=== PATIENT | female | born 1985 | race Caucasian/White ===

== ENCOUNTER 2019-06-03 16:09 | Observation (INO) | payer OTHER, SELFPAY ==
[2019-06-03] VITALS (9 sets, daily range): BP systolic 73–115; BP diastolic 54–78; PULSE 61–190; RESP 14–24; TEMP 36.6–36.8; O2SAT 98–100; BMI 33.5
--- NOTE | ~2019-06-03 | CT_ITS ---
EXAMINATION: CT brain wo con EXAM DATE: 06/03/2019 17:25 INDICATION: Syncope. Atrial fibrillation. Cardioversion. TECHNIQUE: Spiral CT of the head was performed without contrast. Axial, coronal and sagittal images were reviewed. The dose-length product (DLP) for this examination was 605.33 mGy-cm. The exposure w as tailored according to patient size, and iterative reconstruction (ASIR) was used as additional dos e reduction technique. There is no prior study for comparison. FINDINGS: There is no acute intraparenchymal hemorrhage. No evidence of intraparenchymal brain mass lesion. No evidence of acute infarction. There is no mass effect or midline shift. The ventricles are normal in size. There are no extra-axial collections. There are no acute calvarial fractures. T he orbits are unremarkable. Soft tissue is unremarkable. The visualized sinuses and mastoid air chuy ls are well aerated. IMPRESSION: 1. No acute intracranial findings. Reviewed, dictated and finalized at location A.
--- NOTE | ~2019-06-03 | XR_ITS ---
EXAMINATION: XR knee LT 3V EXAM DATE: 06/03/2019 17:33 INDICATION: Initial encounter following injury, with pain of the left knee. Abrasion. TECHNIQUE: Three projections of the left knee. There is no prior study for comparison. FINDINGS: No evidence osteochondral defect or joint body in the left knee joint. There are no acute fractures or dislocations identified. There is no subcutaneous gas. The soft tissue is unremarkabl e. There are no radiopaque foreign bodies. No joint effusion. IMPRESSION: 1. Unremarkable XR knee LT 3V exam. Reviewed, dictated and finalized at location A.
--- NOTE | ~2019-06-03 | XR_ITS ---
EXAMINATION: XR chest 2V EXAM DATE: 06/03/2019 17:33 INDICATION: Fibrillation. Syncope. TECHNIQUE: Frontal AP and lateral chest x-ray was obtained. There is no prior study for comparison. FINDINGS: The lungs are clear. There are no pleural effusions. Cardiac silhouette is prominent but magnified on this AP technique. There is no pneumothorax suspected. The bones and soft tissues are unremarkable. IMPRESSION: No acute cardiopulmonary findings. Reviewed, dictated and finalized at location A.
--- NOTE | 2019-06-03 16:10 | ECG_ITS ---
Measurements Intervals [place] Rate: 166 P: PA: 0 QRS: -50 QRSD: 160 T: 0 QT: 286 QTc: 476 Interpretive Statements WIDE COMPLEX TACHYCARDIA, PROBABLY VENTRICULAR TACHYCARDIA BASELINE WANDER- V5-V6 ABNORMAL ECG Electronically Signed On 06-03-2019 16:39:43 CDT by Chapo Barrera D.O.
--- NOTE | 2019-06-03 16:17 | ED.ARRPALP ---
HPI - Arrhythmia/Palpitations General Chief Complaint: Arrhythmia/Palpitations <Lisandro Ballard MD - Last Filed: 06/09/19 06:19> Stated Complaint: syncopal episode <Lisandro Ballard MD - Last Filed: 06/09/19 06:19> Time Seen by Provider: 06/03/19 16:20 <Lisandro Ballard MD - Last Filed: 06/09/19 06:19> Source: patient and RN notes reviewed <Lisandro Ballard MD - Last Filed: 06/09/19 06:19> Mode of arrival: ambulatory <Lisandro Ballard MD - Last Filed: 06/09/19 06:19> Limitations: no limitations <Lisandro Ballard MD - Last Filed: 06/09/19 06:19> History of Present Illness HPI narrative: A 34 y/o female presents to the ED with constant palpitations beginning this afternoon. She states that she had a syncopal episode earlier this afternoon and after she developed palpitations. She reports that when she had her syncopal episode that she fell to the ground and hit her lt knee and the lt side of her head. She notes that she was recently dx with A-fib within the past 2 months and is currently on Flecainide and Metoprolol. She denies any CP. <Lisandro Ballard MD - Last Filed: 06/09/19 06:19> MD complaint: palpitations <Lisandro Ballard MD - Last Filed: 06/09/19 06:19> Onset (ago): hour(s) (this afternoon) <Lisandro Ballard MD - Last Filed: 06/09/19 06:19> Duration: constant <Lisandro Ballard MD - Last Filed: 06/09/19 06:19> Context: other (happened after a syncopal episode) <Lisandro Ballard MD - Last Filed: 06/09/19 06:19> Arrhythmia history: atrial fibrillation <Lisandro Ballard MD - Last Filed: 06/09/19 06:19> Associated symptoms: syncope and other (lt LUNDBERG and lt knee pain) <Lisandro Ballard MD - Last Filed: 06/09/19 06:19> Related Data Home Medications: Home Medications Medication Instructions Recorded Confirmed levothyroxine 125 mcg PO DAILY 06/03/19 06/03/19 metoprolol succinate 25 mg PO DAILY 06/03/19 06/03/19 <Lisandro Ballard MD - Last Filed: 06/09/19 06:19> Allergies/Adverse Reactions: Allergies Allergy/AdvReac Type Severity Reaction Status Date / Time aspirin AdvReac Nausea and Verified 06/03/19 17:58 Vomiting NSAIDS (Non-Steroidal AdvReac Nausea and Verified 06/03/19 17:58 Anti-Inflamma Vomiting <Lisandro Ballard MD - Last Filed: 06/09/19 06:19> Review of Systems Review of Systems: All systems reviewed & are unremarkable except as noted in HPI and below <Lisandro Ballard MD - Last Filed: 06/09/19 06:19> Cardiovascular: Cardiovascular: Denies chest pain and Reports palpitations <Lisandro Ballard MD - Last Filed: 06/09/19 06:19> Musculoskeletal: Musculoskeletal: Reports other (lt knee pain) <Lisandro Ballard MD - Last Filed: 06/09/19 06:19> Neurologic: Reports syncope and Reports headache(s) (lt) <Lisandro Ballard MD - Last Filed: 06/09/19 06:19> [facility]LY [facility] Past Medical History Medical History: Medical History (Updated 06/03/19 @ 17:46 by Jose Ramos MD) A-fib <Lisandro Ballard MD - Last Filed: 06/09/19 06:19> Surgical History Surgical History: Surgical History (Updated 06/03/19 @ 16:36 by Moustapha Mendez) Hx of laparoscopic gastric banding <Lisandro Ballard MD - Last Filed: 06/09/19 06:19> Social History Social History: Social History (Updated 06/03/19 @ 16:37 by Moustapha Mendez) Smoking status: Never smoker Alcohol intake: never Substance use: never Gender identity (if verbalized by the patient): Female Spiritual care concerns: No Agree to blood products: Yes <Lisandro Ballard MD - Last Filed: 06/09/19 06:19> Exam Const: General: alert <Lisandro Balladr MD - Last Filed: 06/09/19 06:19> Nutritional Appearance: obese <Lisandro Ballard MD - Last Filed: 06/09/19 06:19> Orientation/consciousness: patient oriented x3 <Lisandro Ballard MD - Last Filed: 06/09/19 06:19> Other: Mild distre
--- NOTE | 2019-06-03 16:24 | PC.NURSE ---
PT SYNCHRONIZED CARDIOVERTED @[address] LEBLANC
[2019-06-03] MEDS: SODIUM CHLORIDE 0.9% IV 1,000 ML 999 ML IV CONT (16:25)
--- NOTE | 2019-06-03 16:29 | ECG_ITS ---
Measurements Intervals [place] Rate: 77 P: 63 MO: 170 QRS: -34 QRSD: 113 T: -19 QT: 442 QTc: 503 Interpretive Statements SINUS RHYTHM LEFT AXIS DEVIATION INTRAVENTRICULAR CONDUCTION DELAY DELAYED PRECORDIAL R/S TRANSITION BORDERLINE T WAVE ABNORMALITY- ANT/INF LEADS BORDERLINE ECG Electronically Signed On 06-04-2019 8:58:49 CDT by Chapo Barrera D.O.
[2019-06-03 16:51] LABS: Basophils Percent Auto 0.2 % (0.2-1.2); Eosinophils Absolute Auto 0.2 K/mm3 (0-0.3); Eosinophils Percent Auto 1.2 % (0-4.4); Hematocrit 49.2 % (37.0-47.0); Hemoglobin 16.9 g/dL (12.0-15.0); Immature Granulocyte Absolute 0.03 K/mm3 (0.00-0.031); Immature Granulocyte Percent A 0.2 % (0-0.5); Lymphocytes Absolute Auto 5.16 K/mm3 (0.9-3.2); Mean Corpuscular HGB Conc 34.3 g/dl (32-36); Mean Corpuscular Hemoglobin 31.9 pg (26-34); Mean Corpuscular Volume 92.8 fl (80-100); Mean Platelet Volume 11.8 fl (7.4-10.4); Monocytes Absolute Auto 0.8 K/mm3 (0.1-0.6); Neutrophils Absolute Auto 7.1 K/mm3 (1.3-6.7); Neutrophils Percent Auto 53.4 % (45.5-73.1); Platelet Count Result 278 k/mm3 (150-375); White Blood Count 13.2 K/mm3 (4.5-10.0)
[2019-06-03] MEDS: AMIODARONE 150 MG/D5W 100 ML 150 MG/100 ML BAG 600 MG IV CONT (17:10)
[2019-06-03 17:23] LABS: INR 1.1; Prothrombin Time 13.8 Seconds (11.1-14.7)
[2019-06-03 17:24] LABS: Blood Urea Nitrogen 17 mg/dL (7-17); Calcium 8.8 mg/dL (8.4-10.2); Carbon Dioxide 21 mmol/L (22-30); Chloride 105 mmol/L (98-107); Estimated CRCL calculation 69 ml/min; Estimated Glomerular Filt Rate 57; Glucose 133 mg/dL (65-105); Partial Thromboplastin Time 23.7 SECONDS (22.3-36.8); Potassium 4.8 mmol/L (3.4-5.0); Sodium 136 mmol/L (137-145)
[2019-06-03 17:55] LABS: Troponin I < 0.012 ng/mL (0.000-0.034)
[2019-06-03] MEDS: MAGNESIUM SULF 1 GM/D5W 100 ML 1 GM/100 ML BAG IVPB (17:58)
[2019-06-03 18:06] LABS: Magnesium 2.2 mg/dL (1.6-2.3)
[2019-06-03 20:18] LABS: Magnesium 2.4 mg/dL (1.6-2.3)
[2019-06-03 20:30] LABS: Troponin I < 0.012 ng/mL (0.000-0.034)
[2019-06-03 23:40] LABS: Troponin I < 0.012 ng/mL (0.000-0.034)
[2019-06-04] VITALS (14 sets, daily range): BP systolic 93–109; BP diastolic 53–70; PULSE 44–77; RESP 16–20; TEMP 36.2–37; O2SAT 98–100
[2019-06-04 04:44] LABS: Basophils Percent Auto 0.2 % (0.2-1.2); Eosinophils Absolute Auto 0.1 K/mm3 (0-0.3); Eosinophils Percent Auto 1.1 % (0-4.4); Hematocrit 40.3 % (37.0-47.0); Hemoglobin 13.9 g/dL (12.0-15.0); Immature Granulocyte Absolute 0.02 K/mm3 (0.00-0.031); Immature Granulocyte Percent A 0.2 % (0-0.5); Lymphocytes Absolute Auto 2.51 K/mm3 (0.9-3.2); Lymphocytes Percent Auto 30.2 % (18.3-44.2); Mean Corpuscular HGB Conc 34.5 g/dl (32-36); Mean Corpuscular Hemoglobin 31.8 pg (26-34); Mean Corpuscular Volume 92.2 fl (80-100); Mean Platelet Volume 10.8 fl (7.4-10.4); Monocytes Absolute Auto 0.6 K/mm3 (0.1-0.6); Monocytes Percent Auto 7.5 % (2.6-8.5); Neutrophils Absolute Auto 5.1 K/mm3 (1.3-6.7); Neutrophils Percent Auto 60.8 % (45.5-73.1); Platelet Count Result 199 k/mm3 (150-375); Red Blood Count 4.37 M/mm3 (4.2-5.4); Red Cell Distribution Width 11.9 % (11.5-14.5); White Blood Count 8.3 K/mm3 (4.5-10.0)
[2019-06-04 05:02] LABS: Blood Urea Nitrogen 15 mg/dL (7-17); Calcium 8.3 mg/dL (8.4-10.2); Carbon Dioxide 22 mmol/L (22-30); Chloride 108 mmol/L (98-107); Estimated CRCL calculation 97 ml/min; Estimated Glomerular Filt Rate > 60; Glucose 94 mg/dL (65-105); Potassium 3.7 mmol/L (3.4-5.0); Sodium 137 mmol/L (137-145)
--- NOTE | 2019-06-04 06:00 | ECG_ITS ---
Measurements Intervals [place] Rate: 49 P: 60 MS: 183 QRS: -18 QRSD: 97 T: -39 QT: 484 QTc: 440 Interpretive Statements SINUS BRADYCARDIA LOW QRS VOLTAGE IN PRECORDIAL LEADS T WAVE ABNORMALITY IN ANT/INF LEADS- CONSIDER ISCHEMIA BASELINE WANDER- V3 ABNORMAL ECG Electronically Signed On 06-04-2019 11:00:03 CDT by Chapo Barrera D.O.
--- NOTE | 2019-06-04 06:00 | ECHO_ITS ---
Patient Info Name: Nighat Powell Age: 34 years : 1985 Gender: Female Ht: 65 in Wt: 202 lbs BSA: 2.09 m2 HR: 65 bpm BP: 97 / 54 mmHg Heart Rhythm: Sinus Rhythm Technical Quality: Good Exam Date: 06/04/2019 8:54 AM Exam Location: [facility] Patient Status: Inpatient Admit Date: 06/03/2019 Staff Ordering Physician: Jose Ramos MD Art Objects Salesperson: Tigre Tineo RDCS Attending Provider: Angelina Alberto DO Exam Type: CA echo dop color flow w con Study Info Indications I49.9 - Cardiac arrhythmia, unspecified Complete two-dimensional, color flow and Doppler transthoracic echocardiogram is performed with contrast to opacify the left ventrical and to improve the deliniation of the left ventrical endocarial boarders. Contrast/Agitated Saline Contrast/Ag. Saline: Definity Amount: 3.00 ml Administered By: Katia Casillas RN Existing IV Access: Yes History/Risk Factors Syncope; Vtach, Afib, palpitations, HoTN. Summary 1. Left ventricular systolic function is normal, estimated at 45-50%. 2. Definity contrast injected to enhance visualization. 3. Non dilated left and right atrium. 4. No valvular lesions identified. Left Ventricle Left ventricular chamber dimension is normal. Left ventricular systolic function is normal, estimated at 45-50%. The left ventricular diastolic function is normal. Definity contrast injected to enhance visualization. Right Ventricle Right ventricular chamber dimension is normal. Left Atria Left atrial chamber dimension is normal. Right Atria Right atrial chamber dimension is normal. Aortic Valve The aortic valve is normal. Pulmonic Valve The pulmonic valve is not well visualized. Mitral Valve The mitral valve has normal leaflets. Tricuspid Valve The tricuspid valve leaflets are normal. Pericardium/Pleural The pericardium appears normal. Aorta The aortic root size at the sinus of Valsalva is normal. Left Ventricular Outflow Tract Name Value Normal LVOT 2D LVOT Diameter 1.77 cm LVOT Doppler LVOT Peak Gradient 4 mmHg LVOT Mean Gradient 2 mmHg LVOT VTI 20.45 cm LVOT VTI/AV VTI Ratio 0.83 LVOT Stroke Volume 50.15 ml LVOT CO 3.18 l/min LVOT CI 1.53 L/min/m2 Mitral Valve Name Value Normal MV Doppler MV Decel [place] 402.20 cm/s2 MV PHT 0 s MV Area (PHT) 3.80 cm2 4.00-5.00 MV Diastolic Function MV E Peak Velocity 80.37 cm/s MV
[2019-06-04] MEDS: LEVOTHYROXINE SODIUM 125 MCG TABLET PO (06:40)
[2019-06-04] MEDS: METOPROLOL SUCCINATE EXT REL 25 MG TABCR PO (09:00)
--- NOTE | 2019-06-04 09:53 | PM.IMHP ---
H&P: HPI History of Present Illness Chief complaint: v tach/hemodynamically unstable/status post cardio Narrative: Nighat Powell is a 34 year old female admitted to our service yesterday evening from the emergency room after experiencing a syncopal episode outside [place] local [employer] [place] in the parking lot. The patient has a history of arrhythmias in the past with occasional to sometimes frequent PVCs causing palpitations about 4 years ago when she was . There evaluations did not show any other cardiac problems at that time and it was elected because of to not treat her with any medications at all. Following delivery those palpitations seem to settle down. 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 Some of the nurses at her dialysis center a would feel her pulse in indicate they thought she had atrial fibrillation. She bought an [employer] watch to confirm this and apparently confirmed the diagnosis. She then went to see a high school football coach out at [facility] in [facility] for consultation. She states she had an echocardiogram as well as a stress echocardiogram both of which were normal. She saw him back in follow-up in was placed on metoprolol and flecainide for treatment of this. The drug was started a couple of weeks ago last week the dosage was increased from 50 mg to 100 mg. After she rates the dosage she stated she started to feel sick episodes of severe lightheadedness and near syncope. Yesterday in the parking lot what walking out of [facility] she had a danyelle syncopal episode and went to the ground and awakened after losing consciousness her time being unconscious is unknown. She was taken by ambulance to [facility] where she was evaluated. She was found ECG to have monomorphic ventricular tachycardia. She was electrically cardioverted back to sinus rhythm. She was admitted to our service in IMU and is feeling well this morning and is totally asymptomatic. Review of Systems Constitutional: Constitutional: Reports no additional constitutional complaints Eyes: Eyes: Reports no additional eye complaints ENT: Reports system reviewed and no additional complaints, except as documented Cardiovascular: Cardiovascular: Reports as per HPI and Reports palpitations Respiratory: Respiratory: Reports no additional respiratory complaints Gastrointestinal: Gastrointestinal: Reports no additional gastrointestinal complaints Musculoskeletal: Musculoskeletal: Reports no additional musculoskeletal complaints Integumentary/Breasts: Skin/Breast: Reports system reviewed and no additional complaints, except as docu Neurologic: Reports as per HPI [facility] Past Medical History Medical History (Updated 06/03/19 @ 17:46 by Jose Ramos MD) A-fib Surgical History Surgical History (Updated 06/03/19 @ 16:36 by Moustapha Mendez) Hx of laparoscopic gastric banding Social History Social History (Updated 06/03/19 @ 16:37 by Moustapha Mendez) Smoking status: Never smoker Alcohol intake: never Substance use: never Gender identity (if verbalized by the patient): Female Spiritual care concerns: No Agree to blood products: Yes Meds Home Medications and Allergies Home Medications Medication Instructions Recorded Confirmed Type flecainide 100 mg PO DAILY 06/03/19 06/03/19 History levothyroxine 125 mcg PO DAILY 06/03/19 06/03/19 History metoprolol succinate 25 mg PO DAILY 06/03/19 06/03/19 History Allergies Allergy/AdvReac Type Severity Reaction Status Date / Time aspirin AdvReac Nausea and Verified 06/03/19 17:58 Vomiting NSAIDS (Non-Steroidal AdvReac Nausea and Verified 06/03/19 17:58 Anti-Inflamma Vomiting Vital Signs Vital Signs - 24 hr 06/03/19 16:15 06/03/19 16:30 06/03/19 17:00 Temperature 36.6 C Pulse Rate 190 H 79 72 Respir
[2019-06-04] MEDS: PERFLUTREN LIPID MICROSPHERES 1.5 ML VIAL DILUTED TO 10 ML TOTAL VOLUME IV PUSH (10:03)
[2019-06-05] VITALS (10 sets, daily range): BP systolic 100–103; BP diastolic 49–61; PULSE 43–62; RESP 20; TEMP 36.1–36.5; O2SAT 99–100
[2019-06-05] MEDS: LEVOTHYROXINE SODIUM 125 MCG TABLET PO (06:28)
[2019-06-05] MEDS: METOPROLOL SUCCINATE EXT REL 25 MG TABCR PO (09:44)
--- NOTE | 2019-06-05 09:52 | ECG_ITS ---
Measurements Intervals [place] Rate: 41 P: 52 [place]: 168 QRS: -14 QRSD: 101 T: -22 QT: 481 QTc: 399 Interpretive Statements SINUS BRADYCARDIA LOW QRS VOLTAGE IN PRECORDIAL LEADS T WAVE ABNORMALITY IN INFERIOR LEADS- CONSIDER ISCHEMIA ABNORMAL ECG Electronically Signed On 06-05-2019 12:34:52 CDT by Chapo Barrera D.O.
--- NOTE | 2019-06-05 11:18 | PM.DS ---
DS: Diagnosis Admitting Diagnosis Admitting Diagnosis: Ventricular tachycardia Syncope Discharge Diagnosis (1) Ventricular tachycardia: Code(s): I47.2 - Ventricular tachycardia Status: Acute Assessment and Plan: Presented to the emergency room on 06/03/2019 with palpitations and a syncopal episode that occurred earlier in the afternoon. She was found to have a wide complex tachycardia and was hypotensive. She underwent electrical cardioversion restoring her back to sinus rhythm. She was evaluated by Dr. Sloer on 06/04/2019 who felt that the monomorphic ventricular tachycardia with syncope was almost undoubtedly flecainide induced. Last dose of flecainide was the morning dose on 06/03/2019. No further arrhythmias on telemetry. Bradycardia noted as her Metoprolol succinate 25 mg was continued. She is asymptomatic with this bradycardia. Echocardiogram revealed LV systolic function with EF of 45-50%. Right and left atrium were normal in dimension. No valvular lesions identified. Registered Clinical Dietitian Dr. Jaspreet Briseno by telephone at 12:56 p.m. on 06/05/2019. Records from [facility] will be faxed to his office. DS: Summary Hospital Course Reason for hospitalization: Palpitations and syncopal episode Hospital Course: 34-year-old female with a recent diagnosis of atrial fibrillation on flecainide and Metoprolol succinate presented to the emergency room with constant palpitations and a syncopal episode that occurred earlier in the afternoon. She was found to be in a wide complex tachycardia with hypotension. She was cardioverted successfully restoring normal sinus rhythm. Flecainide was discontinued. Metoprolol succinate at 25 mg daily was continued. She was monitored for 2 consecutive nights on telemetry with no further arrhythmias. Bradycardia was noted but this has been asymptomatic. Her vital signs have been stable. She has been up moving around in her room with no difficulty. She denied any chest discomfort, shortness of breath, lightheadedness or palpitations. Her established timber faller, Dr. Jaspreet Briseno, was notified of her hospitalization. Records will be faxed to his office. She was discharged home in stable and pain-free condition. Status at Discharge Functional status at discharge: independent ambulation Overall status at discharge: patient is back to baseline Time Spent with Patient Time attestation: Total time spent providing and/or coordinating discharge services: 35 minutes Time spent: Greater than 30 minutes Specific discharge activities: Collecting records, discharge order and discharge summary. Exam Const: General: cooperative, comfortable and no acute distress Orientation/consciousness: patient oriented x3 HENMT: Mouth: Yes moist mucous membranes Eyes: Sclera: sclerae normal Pupils: Equal, round and reactive pupils present Neck: Neck: supple Resp: Effort & Inspection: normal respiratory effort and able to speak in complete sentences Auscultation: clear to auscultation bilaterally Cardio: Rate: bradycardic Rhythm: regular rhythm Heart sounds: no murmurs Peripheral pulses: Peripheral pulses 2+ throughout GI: Inspection: normal to inspection GI Palp: Yes Soft to palpation Auscultation: normal bowel sounds Skin: General skin exam: normal color Neuro: General: patient oriented x3 Cranial nerves: Yes Equal, round and reactive pupils present Cognition (Neuro): normal cognition Speech: normal speech Extrem: General: normal to inspection and no pedal edema Psych: Appearance: grossly normal Mental Status: mental status grossly normal Speech and movement: Normal speech and movement present Affect: normal affect Attitude: cooperative Thought process: Normal thought process present Thought content: Yes Normal thought content present Insight: Good insight present (Psych) Judgement: Good judgement present (Psych) DS: Data Data C
== END 2019-06-05 15:15 | disposition home or self-care (01) ==
LOC: ANHED 17:51 → ANHIMU 06-04 01:51
PROVIDERS: Specialist; Admitting Provider Internal Medicine Cardiovascular Disease; Emergency Provider Emergency Medicine; PCP Family Medicine; Visit Provider Internal Medicine Cardiovascular Disease
DX: I47.2 Ventricular tachycardia (principal); I95.9 Hypotension, unspecified; I48.91 Unspecified atrial fibrillation; E03.9 Hypothyroidism, unspecified; R51 Headache; M25.562 Pain in left knee; W19.XXXA Unspecified fall, initial encounter; Z79.899 Other long term (current) drug therapy
CPT/HCPCS: 36415; 70450; 71046; 73562; 80048; 83735; 84443; 84484; 85025; 85610; 85730; 92960; 93005; 96361; 96365; 96374; 96375; 99291; A9270; C8929; G0378; J0171; J0282; J3010; J3475; J7030; Q9957

== ENCOUNTER 2021-01-09 13:52 | Outpatient (CLI) | payer OTHER, SELFPAY ==
[2021-01-09 14:23] LABS: Alanine Aminotransferase 26 U/L (4-35); Albumin Level 4.4 g/dL (3.5-5.1); Alkaline Phosphatase 80 U/L (38-126); Amylase 95 U/L (30-110); Aspartate Amino Transferase 22 U/L (14-36); Bilirubin,Total 0.6 mg/dL (0.2-1.3); Lipase 247 U/L (23-300)
== END 2021-01-09 13:53 | disposition home or self-care (01) ==
LOC: ANHSURGERY 13:56
PROVIDERS: PCP Family Medicine; Visit Provider Surgery
DX: K80.20 Calculus of gallbladder without cholecystitis without obstruction (principal); Z01.818 Encounter for other preprocedural examination
CPT/HCPCS: 36415; 80076; 82150; 83690; 86850; 86900; 86901

== ENCOUNTER 2021-01-14 00:23 | Day surgery (SDC) | payer OTHER, SELFPAY ==
[2021-01-08 16:10] VITALS: BMI 25.6
--- NOTE | 2021-01-08 16:24 | SUR.PREOP ---
Report to the Outpatient Waiting Room, entrance under the green pavilion located off [facility], at time ____1:30pm___ on date 01/14/21__. OR Time: ___3:30 . - You and your visitor will be asked a series of questions to screen for COVID 19 for your protection. - A mask is required within the hospital. - Only one visitor is allowed at this time. Patient visitors will be guided where to wait when not with patient. Preoperative COVID Testing Requirements: No COVID Test needed if: (proof is required; if not received patient will have Rapid Test prior to entry) - Patient has received COVID Vaccine at least 14 days prior to procedure date or - Patient has positive COVID test result within last 90 days of surgery date. COVID Test needed if above criteria is not met If not COVID vaccinated a COVID test must be conducted within 72 hours of surgery and patient is asked to isolate self from time of testing until procedure. You will go to the [employer] [facility] Site for your COVID testing. The [employer] [facility] site is located at the corner of [address] from [facility]. You will only be called if COVID results are positive and your surgeon may reschedule your elective surgery date. Patients may have clear liquids (water, carbonated beverages, clear teas, apple juice) until 3 hours prior to surgery with a maximum of 20 ounces. - No food from midnight until time of surgery - Infants may have breast milk until 4 hours before surgery, formula 6 hours prior to surgery. - Children will be allowed to drink immediately following surgery. If applicable, please bring a bottle or sippy cup to assist with drinking. Juice, water, soda, and popsicles are readily available. For infants on formula, please bring formula the day of surgery. Pacifiers are allowed. Take the following medications with a SIP of water the morning of surgery: __propanolol, levothyroxine Medications to discontinue per physician prenatal vitamin - hold 3 days prior to procedure Date to take last dose Use HIBICLENS soap morning of surgery Please no make-up, nail canadian, hairspray, perfume, deodorant, or body powder the day of surgery. No jewelry (including any body piercings) or valuables the day of surgery, leave them at home. Please take a shower or bath the night before, or the morning of, surgery with an antibacterial soap. Wear comfortable, loose fitting clothing. Children are encouraged to wear pajamas. - Jewelry must be removed prior to entering the operating room. Rings and piercings that are not removed may be cut off. - The hospital will not accept responsibility for valuables. - Please leave all valuables, including medications, at home the day of surgery. If you are going home after surgery, a licensed truck driver rubbish collector must drive you home. - NO public transportation without another adult. - We recommend that an adult stay with you for 24 hours following discharge. - We also recommend that you do not drive, make important decision, drink alcoholic beverages, or take any drugs that were not prescribed by your health care provider for at least 24 hours after your discharge time. For Pediatric surgeries, we recommend two adults accompany the child home (only one inside the building at this time). Follow any additional instructions given to you from your surgeon. Telephone instructions given to ____Richardn and asked if any additional questions and then verbalized understanding. Patient advised to call surgeon office or pre surgery nurse liaison [phone] if any additional questions.
[2021-01-14] VITALS (9 sets, daily range): BP systolic 102–126; BP diastolic 56–85; PULSE 46–78; RESP 12–18; TEMP 36.3–36.9; O2SAT 94–100
[2021-01-14] MEDS: ACETAMINOPHEN 500 MG TABLET 1000 MG PO (12:33)
--- NOTE | 2021-01-14 14:11 | P.PNAN_ITS ---
Anes - Initial Pre Proc Eval Procedure: Operation Date: 01/14/21 14:00 Proposed Procedures p Laparoscopic Cholecystectomy, Possible Open - Fitz Kovacs DO Date/Time: 01/14/21 14:11 Surgeon: Fitz Kovacs DO Pre Op Diagnosis: Symptomatic Cholelithiasis Patient Data Age: 35 Gender: F Height: 1.65 m Weight: 71.5 kg Last Vital Signs Temp 98.5 F 01/14/21 12:48 Pulse 47 L 01/14/21 12:48 Resp 16 01/14/21 12:48 BP 102/77 01/14/21 12:48 Pulse Ox 100 01/14/21 12:48 Allergies Allergy/AdvReac Type Severity Reaction Status Date / Time aspirin AdvReac Nausea and Verified 01/14/21 12:04 Vomiting NSAIDS (Non-Steroidal AdvReac Nausea and Verified 01/14/21 12:04 Anti-Inflamma Vomiting Home Medications Medication Instructions Recorded Confirmed Type PNV,calcium 71-vcua-rmngn acid 1 tablet PO DAILY 01/08/21 01/14/21 History [PrePlus] levothyroxine 137 mcg PO DAILY 01/08/21 01/14/21 History propranolol 20 mg PO DAILY 01/08/21 01/14/21 History Patient hx anesthesia problems: none Family hx anesthesia problems: none Results Review: All pre-operative results and documents have been reviewed as part of the pre-operative evaluation. [facility] Past Medical History Medical History A-fib Anxiety Cardiac defibrillator in place Congenital adrenal hyperplasia Surgical History Surgical History Hx of laparoscopic gastric banding Status post hysteroscopic resection of uterine septum Family History Family History Grandparent Cerebrovascular accident Heart attack Father HIV (human immunodeficiency virus infection) Social History Social History Social History: caffeine use: soda & coffee daily-trying to cut back Smoking status: Never smoker Alcohol intake: current Alcohol use details: rarely-wine coolers Substance use: never Living arrangements: with family 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 Informed Consent: The patient's anesthetic plan and its attendant risks and benefits were discussed with the patient/family/POA. Questions were solicited and answers provided to the satisfaction of the patient/family/POA.
--- NOTE | 2021-01-14 14:18 | SUR.PREOP ---
Discussed delay with patient and her . Voices understanding and disappointment.
--- NOTE | 2021-01-14 15:16 | PM.IMHP ---
H&P: HPI History of Present Illness Date/Time: 01/14/21 15:16 Chief Complaint: Upper abdominal pain Narrative: This is a 35 year old woman who presents for laparoscopic cholecystectomy. She reports no changes since last seen in the office. Review of Systems Review of Systems: All systems reviewed & are unremarkable except as noted in HPI and below Constitutional: Constitutional: Denies chills, Denies fever(s), Denies headache(s) and Denies weight loss Eyes: Eyes: Denies change in vision ENT: Denies dizziness, Denies headache(s), Denies neck mass and Denies throat swelling Cardiovascular: Cardiovascular: Denies chest pain, Denies lightheadedness and Denies dyspnea Respiratory: Respiratory: Denies cough, Denies dyspnea and Denies wheezing Gastrointestinal: Gastrointestinal: Denies abdominal pain, Denies change in bowel habits, Denies nausea and Denies vomiting Genitourinary: Genitourinary: Denies hematuria and Denies dysuria Musculoskeletal: Musculoskeletal: Reports as per HPI Integumentary/Breasts: Skin/Breast: Reports as per HPI Neurologic: Denies dizziness and Denies headache(s) Allergic/Immunologic: Allergic/Immunologic: Denies throat swelling and Denies wheezing PMFSH Past Medical History Medical History A-fib Anxiety Cardiac defibrillator in place Congenital adrenal hyperplasia Surgical History Surgical History Hx of laparoscopic gastric banding Status post hysteroscopic resection of uterine septum Family History Family History Grandparent Cerebrovascular accident Heart attack Father HIV (human immunodeficiency virus infection) Social History Social History Social History: caffeine use: soda & coffee daily-trying to cut back Smoking status: Never smoker Alcohol intake: current Alcohol use details: rarely-wine coolers Substance use: never Living arrangements: with family 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 Gender identity (if verbalized by the patient): Female Spiritual care concerns: No Agree to blood products: Yes Meds Home Medications and Allergies Home Medications Medication Instructions Recorded Confirmed Type PNV,calcium 00-drte-daccy acid 1 tablet PO DAILY 01/08/21 01/14/21 History [PrePlus] levothyroxine 137 mcg PO DAILY 01/08/21 01/14/21 History propranolol 20 mg PO DAILY 01/08/21 01/14/21 History Allergies Allergy/AdvReac Type Severity Reaction Status Date / Time aspirin AdvReac Nausea and Verified 01/14/21 12:04 Vomiting NSAIDS (Non-Steroidal AdvReac Nausea and Verified 01/14/21 12:04 Anti-Inflamma Vomiting Vital Signs Vital Signs - 24 hr 01/14/21 12:48 Temperature 36.9 C Pulse Rate 47 L Respiratory Rate 16 Blood Pressure 102/77 Pulse Oximetry 100 Exam Const: General: no acute distress and alert Orientation/consciousness: patient oriented x3 HENMT: Head: normocephalic and atraumatic Ears: hearing grossly normal bilaterally General nose exam: Normal nares present Mouth: Yes Normal oral and palatal mucosa present Eyes: Periorbital: periorbital findings normal Sclera: sclerae normal EOM: EOMs intact bilaterally Neck: Neck: normal visual inspection, no lymphadenopathy and trachea midline Chest: Chest palpation & inspection: normal inspection of the chest Resp: Effort & Inspection: normal respiratory effort Auscultation: clear to auscultation bilaterally Cardio: Jugular venous distension: no JVD Rate: regular rate Rhythm: regular rhythm Heart sounds: S1 normal heart sound present and S2 normal heart sound present Peripheral pulses: Peripheral pulses 2+ throughout GI: Inspection: normal to inspection GI Palp: Yes Soft to palpation, No
--- NOTE | 2021-01-14 15:38 | WPDHPUPDATE1 ---
History and Physical Update Update Date/Time: 01/14/21 15:38 History and Physical has been reviewed, including an updated exam of the patient. There are NO changes in the patient's condition. Risks, benefits, and alternatives have been discussed and questions answered. Patient agrees to proceed with procedure.
[2021-01-14] MEDS: BUPIVACAINE HCL 0.5% PF 30 ML VIAL INFILTRATE (16:11)
--- NOTE | 2021-01-14 16:40 | W.PM.PROC2 ---
Procedure Note - Detailed Date of Procedure 01/14/21 Pre-op Diagnosis Symptomatic Cholelithiasis Post-op Diagnosis same Procedure Performed Laparoscopic Cholecystectomy Surgeon Fitz Kovacs, DO Anesthesia general and local (0.5% bupivacaine) Indications This is a 35-year-old woman who presented with multiple episodes of upper abdominal pain over the past several months. She noticed this shortly after delivering her child. She had a gallbladder ultrasound which showed evidence of cholelithiasis. I discussed treatment options with the patient decision was made to proceed with laparoscopic cholecystectomy, possible open. Findings Laparoscopic cholecystectomy was performed. The gallbladder was slightly intrahepatic and slightly contracted. There were multiple stones within the fundus and neck of the gallbladder. There is even a small stone in the cystic duct. I ensured that I dissected the cystic duct out beyond the stone and and transected the cystic duct where it appeared soft and tapered. No other significant abnormalities were noted. The gallbladder was removed and sent to lab for pathology. Description of Procedure Procedure as well as risks, benefits, and alternatives were discussed with patient. Written consent was obtained and placed in chart prior to procedure. The patient was brought back to surgical suite. Patient was placed in supine position on operating table. Time-out was done to confirm patient and procedure. Patient was then intubated by the anesthesia department. Abdomen was prepped and draped in sterile fashion using chlorhexidine prep. 0.5% bupivacaine with epinephrine was infiltrated at each site of incision. A 5 millimeter incision was made near the umbilicus, and a 5 millimeter Optiview trocar was advanced through the abdominal layers under direct visualization. Once inside the abdominal cavity, carbon dioxide was insufflated to create a pneumoperitoneum. The camera was inserted and the abdomen was inspected. No immediate abnormalities were identified. The patient was placed in reverse Trendelenburg position and rotated slightly to the left. An 11 millimeter incision was made in the subxiphoid region, and an 11 millimeter trocar was inserted under direct visualization. Two 5 millimeter incisions were made in the right upper quadrant, and two 5 millimeter trocars were inserted under direct visualization. The gallbladder was identified and grasped at the fundus and retracted superiorly. It was then grasped at the infundibulum retracted laterally. Careful dissection around the neck of the gallbladder was performed using blunt dissection with a [place] grasper and hook electrocautery. The cystic duct was identified, and a window was created behind it. The cystic artery was also identified and a window was created behind it. The critical view of safety was identified, visualizing the cystic duct running directly into the neck of the gallbladder, and the cystic artery running directly into the wall of the gallbladder. A 5 millimeter clip oyster harvester was then used to place 2 clips proximally and 1 clip distally on both the cystic duct and cystic artery. They were then both transected using endoscopic scissors. Once safely away from the ronny hepatitis, the gallbladder was dissected free from the liver bed using hook electrocautery. Hemostasis was achieved along the way. The gallbladder was removed completely and then removed through the subxiphoid port. The liver bed was then inspected. Hemostasis appeared adequate, and our clips appeared secure. The area was gently irrigated with sterile saline. No other abnormalities were seen. The patient was flattened out in bed, and 1 final inspection was made around the abdominal cavity. The subxiphoid port was removed, and a Hakeem Darrell cone was used to approximate the fascia with an 0-Vicryl simple interrupted suture. The remaining ports were then removed under direct visualizati
[2021-01-14] MEDS: LACTATED RINGERS 1,000 ML 30 ML IV CONT ×2 (16:43→17:33)
[2021-01-14] MEDS: fentaNYL CITRATE INJ (*CRX) 100 MCG/2 ML VIAL 25 MCG IV PUSH ×4 (17:10→17:24)
--- NOTE | 2021-01-14 17:22 | SUR.PHASEI ---
[id number] - dr. massey at bedside
[2021-01-14] MEDS: ONDANSETRON INJ 4 MG/2 ML VIAL IV PUSH (18:03)
[2021-01-14] MEDS: diphenhydrAMINE HCl INJ 50 MG/ML VIAL 25 MG IV PUSH (18:32)
[2021-01-14] MEDS: SCOPOLAMINE 1.5 MG PATCH TRANSDERM (18:34)
== END 2021-01-14 19:30 | disposition home or self-care (01) ==
PROVIDERS: PCP Family Medicine; Visit Provider Surgery
PROC: 0FT44ZZ Resection of Gallbladder, Percutaneous Endoscopic Approach (ICD-10-PCS; CPT 47562; principal; 2021-01-14 14:00)
DX: K80.64 Calculus of gallbladder and bile duct with chronic cholecystitis without obstruction (principal); I48.91 Unspecified atrial fibrillation; F41.9 Anxiety disorder, unspecified; Z95.810 Presence of automatic (implantable) cardiac defibrillator; Z98.84 Bariatric surgery status
CPT/HCPCS: 47562; 36415; 80076; 82150; 83690; 86850; 86900; 86901; 88304; A9270; J0330; J1200; J2250; J2270; J2405; J2704; J3010; J7030; J7120